=== PATIENT | female | born 1980 | race Two or more races ===

== ENCOUNTER 2018-07-07 17:10 | Emergency (ER) | payer OTHER ==
[~2018-07-07] VITALS: Ht 167.6 cm; Wt 61.7 kg
[2018-07-07] MEDS ORDERED: LANTUS SOL100 UNIT/1 (17:40)
[2018-07-07] MEDS ORDERED: HUMALOG JU100 UNIT/1 (17:41)
== END 2018-07-07 20:43 | disposition home or self-care (01) ==
LOC: ER 17:10
DX: S92.414A Nondisplaced fracture of proximal phalanx of right great toe, initial encounter for closed fracture (principal); M79.89 Other specified soft tissue disorders; X58.XXXA Exposure to other specified factors, initial encounter; Y93.89 Activity, other specified; Y92.89 Other specified places as the place of occurrence of the external cause; Y99.8 Other external cause status

== ENCOUNTER 2018-12-09 14:51 | Emergency (ER) | payer OTHER ==
[~2018-12-09] VITALS: Ht 167.6 cm; Wt 62.6 kg
[~2018-12-09 14:51] MED LIST: HUMALOG JU100 UNIT/1; LANTUS SOL100 UNIT/1
== END 2018-12-09 18:15 | disposition home or self-care (01) ==
LOC: ER 14:51
DX: N39.0 Urinary tract infection, site not specified (principal); D64.9 Anemia, unspecified; K59.09 Other constipation; M62.830 Muscle spasm of back

== ENCOUNTER 2021-01-02 20:19 | Emergency (ER) | payer OTHER ==
[~2021-01-02] VITALS: Ht 167.6 cm; Wt 62.1 kg
[2021-01-02] MEDS ORDERED: LANTUS SOL100 UNIT/1 SUBCUTANEO (20:44)
[2021-01-02] MEDS ORDERED: HUMALOG100 UNIT/1 SUBCUTANEO (20:45)
== END 2021-01-02 21:35 | disposition home or self-care (01) ==
LOC: ER 20:19 → EDBD 20:19 → ER 21:07
DX: M79.602 Pain in left arm (principal); M62.81 Muscle weakness (generalized)

== ENCOUNTER 2021-04-03 11:10 | Outpatient (CLI) | payer OTHER ==
[~2021-04-03 11:10] MED LIST changes: +HUMALOG100 UNIT/1 SUBCUTANEO; +LANTUS SOL100 UNIT/1 SUBCUTANEO
== END 2021-04-03 11:15 | disposition home or self-care (01) ==
LOC: NUCLEAR 11:10
DX: R29.898 Other symptoms and signs involving the musculoskeletal system (principal); M79.602 Pain in left arm

== ENCOUNTER 2021-04-04 12:52 | Outpatient (CLI) | payer OTHER | END 2021-04-04 12:54 | disposition home or self-care (01) | LOC: NUCLEAR 12:52 | DX: M79.602 Pain in left arm (principal); R29.898 Other symptoms and signs involving the musculoskeletal system ==

== ENCOUNTER 2022-02-06 21:57 | Emergency (ER) | payer OTHER ==
[~2022-02-06] VITALS: Ht 167.6 cm; Wt 74.8 kg
[2022-02-07] MEDS ORDERED: PHENAGIL TABLE1 EACH PO (03:55)
== END 2022-02-07 04:02 ==
LOC: ER 21:57
DX: J06.9 Acute upper respiratory infection, unspecified (principal); Z79.4 Long term (current) use of insulin; Z88.1 Allergy status to other antibiotic agents

== ENCOUNTER 2022-08-29 04:57 | Emergency (ER) | payer OTHER ==
[~2022-08-29] VITALS: Ht 167.6 cm; Wt 63.5 kg
[~2022-08-29 04:57] MED LIST changes: +PHENAGIL TABLE1 EACH PO
[2022-08-29] MEDS ORDERED: SILVADENE20 GM TOP (05:44)
[2022-08-29] MEDS ORDERED: KETO10TA2 PO (05:45)
[2022-08-29] MEDS ORDERED: CEPHALEXIN500 MG PO (05:45)
== END 2022-08-29 05:50 ==
LOC: ER 04:57
DX: T25.212A Burn of second degree of left ankle, initial encounter (principal); Z88.2 Allergy status to sulfonamides

== ENCOUNTER 2024-01-05 09:55 | Emergency (ER) | payer OTHER ==
[~2024-01-05] VITALS: Ht 170.2 cm; Wt 58.1 kg
[~2024-01-05 09:55] MED LIST changes: +CEPHALEXIN500 MG PO; +KETO10TA2 PO; +SILVADENE20 GM TOP
[2024-01-05] MEDS ORDERED: KETOROLAC TROMETHAMINE 30 MG VIAL IM STA (12:08)
== END 2024-01-05 14:54 | disposition home or self-care (01) ==
LOC: ER 09:56
DX: M54.9 Dorsalgia, unspecified (principal); Z88.2 Allergy status to sulfonamides; Z88.8 Allergy status to other drugs, medicaments and biological substances

== ENCOUNTER 2024-10-12 17:01 | Emergency (ER) | payer OTHER ==
[~2024-10-12] VITALS: Ht 162.6 cm; Wt 63.5 kg
[2024-10-12] MEDS ORDERED: PROPOFOL 10 MG/1 ML VIAL 50ML IV ONE (17:45)
[2024-10-12] MEDS ORDERED: 0.9 % SODIUM CHLORIDE 1,000 ML IV ONE (18:30)
[2024-10-12] MEDS ORDERED: FAMOtidine 10 MG/ML (4ML VIAL) IV ONE (18:30)
[2024-10-12] MEDS ORDERED: ONDANSETRON HCL 2 MG/ML VIAL IV ONE (18:30)
[2024-10-12] MEDS ORDERED: MORPHINE SULFATE 4 MG/ML VIAL IV ONE (18:30)
[2024-10-12] MEDS ORDERED: FAMOTIDINE/PF 20 MG/2 ML VIAL ONE (19:06)
[2024-10-12] MEDS ORDERED: ONDANSETRON HCL 2 MG/ML VIAL ONE (19:06)
[2024-10-12 19:19] LABS: HEMOGLOBIN 13.1 g/dL (12.0-15.00); MEAN CELL VOLUME 87.7 fL (80.00-100.00); MEAN CORPUSCULAR HEMOGLOBIN 29.5 pg (27.00-32.0); MEAN CORPUSCULAR HGB CONC 33.6 g/dl (32.0-36.0); PLATELET COUNT 346 K/uL (150-450); RED BLOOD COUNT 4.45 M/uL (4.00-6.00); RED CELL DISTRIBUTION WIDTH 13.3 % (11.5-14.5)
[2024-10-12 19:39] LABS: INR < 0.93; PARTIAL THROMBOPLASTIN TIME 25.6 SECONDS (22.0-34.0); PROTHROMBIN TIME 9.8 SECONDS (9.0-11.5)
[2024-10-12 19:44] LABS: ALBUMIN 3.8 gm/dL (3.4-5.0); ALKALINE PHOSPHATASE 92 U/L (50-136); ALT/SGPT 22 U/L (12-78); ANION GAP 10 (10.0-20.0); AST/SGOT 12 U/L (15-37); BLOOD UREA NITROGEN 14 mg/dL (7-18); BUN CREA RATIO 14 (7.0-25.0); CALCIUM 9.3 mg/dL (8.5-10.1); CARBON DIOXIDE 30 mEq/L (21-32); CHLORIDE 99 mmol/L (98-107); CREATININE SERUM 0.98 mg/dL (0.55-1.02); GFR 60.57; GLOBULINA 4.3 G/DL (2.4-3.5); SODIUM 134 mmol/L (136-145); TOTAL PROTEIN 8.1 gm/dL (6.4-8.2)
[2024-10-12 19:50] LABS: HCG QUANTITATIVE < 1 mUI/mL (1-3); OSMOLALITY SERUM 293 MOSM/KG (275-295)
[2024-10-12 19:51] LABS: GLUCOSE FASTING 538 mg/dL (65-100)
[2024-10-13] MEDS ORDERED: KETOROLAC TROMETHAMINE 30 MG VIAL IV STA (02:38)
[2024-10-13 06:03] VITALS: BP 139/83; O2SAT 98
== END 2024-10-13 06:05 | disposition designated cancer center or children's hospital (05) ==
LOC: ER 17:03
PROVIDERS: General Practice
DX: S42.392A Other fracture of shaft of left humerus, initial encounter for closed fracture (principal); W18.39XA Other fall on same level, initial encounter; Y93.89 Activity, other specified; Y92.89 Other specified places as the place of occurrence of the external cause; Y99.8 Other external cause status; Z88.1 Allergy status to other antibiotic agents; Z88.2 Allergy status to sulfonamides